=== PATIENT | female | born 1955 | race Caucasian/White ===

== ENCOUNTER 2022-06-22 16:40 | Inpatient (IN) | payer MEDICARE, OTHER, SELFPAY ==
[2022-06-22 17:02] VITALS: BP 159/91; PULSE 100; RESP 16; TEMP 36.2; O2SAT 97; BMI 25.8
--- NOTE | 2022-06-22 17:05 | DI.RAD.S_ITS ---
PROCEDURE: XR HIP W PEL IF DONE LT 2V INDICATIONS: fall, unable to bear weight. left hip pain TECHNIQUE: AP pelvis with lateral view(s) of the left hip(s). COMPARISON: None. FINDINGS: Bones: A mildly displaced subcapital left femoral neck fracture is faintly seen. No additional fractures are detected. There is moderate to severe superior joint space narrowing seen of both hips, with associated remodeling changes with subchondral sclerosis and osteophyte formation. Lower lumbar spine postoperative and degenerative changes are seen. Soft tissues: The visualized bowel gas pattern is normal. No suspicious soft tissue calcifications. IMPRESSION: Apparent mildly displaced left femoral neck fracture at the subcapital level. Please consider a dedicated CT for further evaluation, if it would be helpful for clinical management decision making. Moderate to severe bilateral hip degenerative change can be seen. Lower lumbar spine postoperative and degenerative changes are seen. Dictated by: Kyle Truong M.D. on 06/22/2022 at 16:45 Approved by: Kyle Truong M.D. on 06/22/2022 at 16:46
--- NOTE | 2022-06-22 18:18 | ED_ITS ---
HPI - Fall General Chief Complaint: Fall Stated Complaint: Fell yesterday, Hip pain Time Seen by Provider: 06/22/22 18:15 Source: patient Mode of arrival: Wheelchair History of Present Illness HPI Narrative: 67-year-old female former smoker with history of hypertension and hyperlipidemia presents with family in the chief complaint of a fall yesterday in which she misjudged the depth of a step and fell onto her side resulting in severe hip pain, to the point that she can not ambulate due to this pain. She denies any head neck or back pain. She denies any prodromal symptoms such as dizziness, weakness or lightheadedness. She has had no chest pain, shortness of breath or palpitations. She denies nausea, vomiting or diarrhea. She denies any numbness, tingling or weakness. She is activated as a modified trauma given age greater than 65 and suspected injury Related Data Home Medications Medication Instructions Recorded Confirmed amlodipine 2.5 mg tablet 2.5 mg PO DAILY 06/22/22 06/22/22 aspirin 81 mg chewable tablet 81 mg PO DAILY 06/22/22 06/22/22 atorvastatin 80 mg tablet 80 mg PO BEDTIME 06/22/22 06/22/22 lisinopril 2.5 mg tablet 2.5 mg PO BID 06/22/22 06/22/22 Previous Rx's Medication Instructions Recorded enoxaparin 40 mg/0.4 mL 40 mg (0.4 mL) SUBCUT DAILY 14 06/24/22 subcutaneous syringe (Lovenox) days #4 mL oxycodone 10 mg tablet 10 mg PO Q4H PRN Pain, Moderate 06/24/22 (4-6) #30 tabs Allergies Allergy/AdvReac Type Severity Reaction Status Date / Time No Known Drug Allergies Allergy Verified 06/23/22 17:36 Review of Systems Review of Systems Narrative: GENERAL: Denies chills, fatigue, malaise, fever, sweats. HEENT: Denies sinus pain, ear pain, sore throat, difficulty swallowing, dizziness. RESPIRATORY: Denies dyspnea, cough, wheezing, hemoptysis, sputum. CARDIOVASCULAR: Denies chest pain, palpitations, orthopnea, edema, GASTROINTESTINAL: Denies nausea, vomiting, abdominal pain, diarrhea, constipation, melena. : Denies dysuria, frequency, incontinence, hematuria, urinary retention. MUSCULOSKELETAL: d see HP SKIN: Denies rash, skin lesions, or other NEUROLOGIC: Denies weakness, headache, numbness, change in speech, confusion, seizures, incoordination. PSYCHIATRIC: No concerning psychosocial issues. 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 Well-developed patient, in mild distress. HEAD: Atraumatic. Normocephalic. EYES: Pupils equal round and reactive. Extraocular motions intact. No scleral icterus. No injection or drainage. ENT: Nose without bleeding, purulent drainage. Throat without erythema, tonsillar hypertrophy or exudate. Airway patent. NECK: Trachea midline. Non tender CARDIOVASCULAR: Regular rate and rhythm without murmurs, gallops, or rubs. RESPIRATORY: Clear to auscultation. Breath sounds equal bilaterally. No wheezes, rales, or rhonchi. GASTROINTESTINAL: Abdomen soft, non-tender, nondistended. EXTREMITIES: Left hip tender to palpate, no shortening or rotation, no numbness, tingling or weakness BACK: Nontender without deformity or crepitance. No flank tenderness. NEURO: AOx3. SKIN: No rash or erythema of visible areas Initial Vital Signs Initial Vital Signs: Vital Signs Temperature 97.1 F L 06/22/22 17:02 Pulse Rate 100 H 06/22/22 17:02 Respiratory Rate 16 06/22/22 17:02 Blood Pressure 159/91 H 06/22/22 17:02 Pulse Oximetry 97 06/22/22 17:02 Oxygen Delivery Method 06/22/22 17:02 Course Orders Ordered: Discontinued Medications Acetaminophen (Acetaminophen 325 Mg Tablet) 325 mg PO Q6HR PRN PRN Reason: Fever/Mild Pain (1-3) Last Admin: 06/23/22 19:23 Dose: 325 mg Documented By: CG Acetaminophen (Acetaminophen 325 Mg Tablet) 325 mg PO PACUNOW PRN PRN Reason: Pain, Mild (1-3) Hydrocodone Bitart/Acetaminophen (Hydrocodone/Acet 5/325 Tablet) 1 tab PO Q4HR PRN PRN Reason: Pain, Moderate (4-6) Al Hydrox/Mg Hydrox/Simethicone (Mag Hydrox/Alum/Simeth 30 Ml Udc) 30 ml PO QID PRN PRN Reason: Dyspepsia Last Admin: 06/24/22 10:30 Dose: 30 ml Documented By: Admin: 06/24/22 00:04 Dose: 30 ml Documented By: CN Amlodipine Besylate (Amlodipine 5 Mg Tablet) 2.5 mg PO DAILY [facility] [place] Last Admin: 06/24/22 08:57 Dose: 2.5 mg Documented By: Admin: 06/23/22 10:36 Dose: 2.5 mg Documented By: AM Aspirin (Aspirin 81 Mg Chew Tab) 81 mg PO DAILY [facility] [place] Last Admin: 06/24/22 08:56 Dose: 81 mg Documented By: AM Atorvastatin Calcium (Atorvastatin 20 Mg Tablet) 80 mg PO BEDTIME [facility] [place] Last Admin: 06/23/22 20:22 Dose: 80 mg Documented By: ARCHIE Bupivacaine HCl/Epinephrine Bitart (Bupivacaine 0.5% W/ Epi (Pf) 30 Ml Vial) 30 ml INJ NOW ONE Stop: 06/23/22 18:39 Last Admin: 06/23/22 18:38 Dose: 30 ml Documented By: ANGELO Docusate Sodium (Docusate 100 Mg Capsule) 100 mg PO BID [facility] [place] Last Admin: 06/24/22 08:57 Dose: 100 mg Documented By: Admin: 06/23/22 20:22 Dose: 100 mg Documented By: CN Enoxaparin Sodium (Enoxaparin 40 Mg/0.4 Ml Syringe) 40 mg SUBCUT DAILY [facility] [place] Last Admin: 06/24/22 08:59 Dose: 40 mg Documented By: AM Famotidine (Famotidine 20 Mg Tablet) 20 mg PO BID [facility] [place] Last Admin: 06/23/22 09:11 Dose: 20 mg Documented By: Admin: 06/22/22 21:00 Dose: 20 mg Documented By: MS Fentanyl (Fentanyl 100 Mcg/2 Ml Inj) 0 mcg IV Q5M PRN PRN Reason: Pain, Moderate (4-6) Heparin Sodium (Porcine) (Heparin 5,000 Unit/Ml Vial) 5,000 unit SUBCUT BID FOSTER Stop: 06/23/22 09:01 Last Admin: 06/23/22 09:11 Dose: 5,000 unit Documented By: Admin: 06/22/22 21:00 Dose: 5,000 unit Documented By: Hydromorphone HCl (Hydromorphone 0.5 Mg Inj) 0.5 mg IV NOW ONE Stop: 06/22/22 18:55 Last Admin: 06/22/22 18:57 Dose: 0.5 mg Documented By: TK Hydromorphone HCl (Hydromorphone 2 Mg Inj) 0 mg IV Q5M PRN PRN Reason: Pain, Moderate (4-6) Hydromorphone HCl (Hydromorphone 1 Mg Inj) 0.2 mg IV Q1H PRN PRN Reason: Pain, Mild (1-3) Lactated Ringer's (Lactated Ringers) 1,000 mls @ 42 mls/hr IV CONT FOSTER Last Infusion: 06/23/22 19:18 Dose: 0 mls/hr Documented By: Admin: 06/23/22 18:04 Dose: 42 mls/hr Documented By: VIANEY Cefazolin Sodium/Dextrose (Ancef) 100 mls @ 200 mls/hr IV NOW ONE Stop: 06/23/22 19:06 Last Infusion: 06/23/22 18:25 Dose: 0 mls/hr Documented By: Admin: 06/23/22 18:10 Dose: 200 mls/hr Documented By: AB Lactated Ringer's (Lactated Ringers) 1,000 mls @ 125 mls/hr IV CONT FOSTER Last Admin: 06/23/22 20:22 Dose: 125 mls/hr Documented By: ARCHIE Cefazolin Sodium/Dextrose (Ancef) 100 mls @ 200 mls/hr IV Q8H FOSTER Stop: 06/24/22 10:29 Last Admin: 06/24/22 11:55 Dose: 200 mls/hr Documented By: Infusion: 06/24/22 02:55 Dose: 200 mls/hr Documented By: Admin: 06/24/22 02:25 Dose: 200 mls/hr Documented By: ARCHIE Lisinopril (Lisinopril 5 Mg Tablet) 2.5 mg PO BID [facility] [place] Last Admin: 06/24/22 08:58 Dose: 2.5 mg Documented By: Admin: 06/23/22 20:22 Dose: 2.5 mg Documented By: ARCHIE Magnesium Chloride (Magnesium Chloride 64 Mg Tablet) 128 mg PO NOW ONE Stop: 06/23/22 12:01 Last Admin: 06/23/22 14:20 Dose: 128 mg Documented By: AM Magnesium Hydroxide (Magnesium Hydroxide 30 Ml Udc) 30 ml PO BEDTIME [facility] [place] Last Admin: 06/23/22 20:22 Dose: 30 ml Documented By: ARCHIE Metoclopramide HCl (Metoclopramide 10 Mg/2 Ml Inj) 10 mg IV Q6HR PRN PRN Reason: Nausea And Vomiting Morphine Sulfate (Morphine 2 Mg/Ml Inj) 2 mg IV Q4HR PRN PRN Reason: Pain, Moderate (4-6) Last Admin: 06/23/22 03:24 Dose: 2 mg Documented By: Admin: 06/22/22 22:18 Dose: 2 mg Documented By: Naloxone HCl (Naloxone 0.4 Mg/Ml Vial) 0.2 mg IV Q2MIN PRN PRN Reason: Opiate Reversal Ondansetron HCl (Ondansetron 4 Mg/2 Ml Inj) 4 mg IV NOW PRN PRN Reason: Nausea And Vomiting Last Admin: 06/23/22 19:22 Dose: 4 mg Documented By: VIANEY Ondansetron HCl (Ondansetron 4 Mg Odt) 4 mg PO Q4HR PRN PRN Reason: Nausea And Vomiting Oxycodone HCl (Oxycodone Ir 5 Mg Tablet) 5 mg PO Q4HR PRN PRN Reason: Pain, Moderate (4-6) Last Admin: 06/23/22 04:10 Dose: 5 mg Documented By: Admin: 06/22/22 20:59 Dose: 5 mg Documented By: Oxycodone HCl (Oxycodone Ir 5 Mg Tablet) 10 mg PO Q4HR PRN PRN Reason: Pain, Moderate (4-6) Last Admin: 06/23/22 19:22 Dose: 10 mg Documented By: Admin: 06/23/22 14:20 Dose: 10 mg Documented By: Admin: 06/23/22 10:36 Dose: 10 mg Documented By: AM Oxycodone HCl (Oxycodone Ir 10 Mg Tablet) 10 mg PO Q3HR PRN PRN Reason: Pain, Moderate (4-6) Last Admin: 06/24/22 12:08 Dose: 10 mg Documented By: Admin: 06/24/22 08:56 Dose: 10 mg Documented By: Admin: 06/24/22 02:47 Dose: 10 mg Documented By: Admin: 06/23/22 23:41 Dose: 10 mg Documented By: Admin: 06/23/22 20:21 Dose: 10 mg Documented By: CN Oxycodone/Acetaminophen (Oxycodone/Acetaminophen 5/325 Tablet) 1 tab PO PACUNOW PRN PRN Reason: Mild or Moderate Pain Sodium Chloride (Sodium Chloride 0.9% Flush) 10 ml IV BID FOSTER Last Admin: 06/24/22 11:54 Dose: 10 ml Documented By: Admin: 06/23/22 20:23 Dose: 10 ml Documented By: Admin: 06/23/22 19:13 Dose: Not Given Documented By: Admin: 06/22/22 21:06 Dose: 10 ml Documented By: MS Consultations Consultation #1: On-call orthopedist, Dr. Zavala, contacted and happy to accept patient on his service Vital Signs Vital signs: Vital Signs - 8 hr 06/22/22 17:02 Temperature 97.1 F L Pulse Rate 100 H Respiratory Rate 16 Blood Pressure 159/91 H Pulse Oximetry 97 Oxygen Delivery Method Room Air - Fall Lab Data Result diagrams: 06/24/22 07:00 06/24/22 07:00 Labs: Lab Results 06/22/22 06/22/22 06/22/22 Range/Units 18:40 18:40 18:40 WBC 6.9 (4.5-11.0) X10^3/uL RBC 4.71 (4.0-5.2) X10^6/uL Hgb 14.4 (12.0-16.0) g/dL Hct 41.4 (36-46) % MCV 87.7 (80-100) fL MCH 30.6 (26-34) PG MCHC 34.9 (30-36) % RDW 13.2 (11.6-14.8) % Plt Count 202 (150-400) X10^3/uL Neut % (Auto) 49.1 L (50-75) % Lymph % (Auto) 33.2 (25-40) % [place] % (Auto) 10.1 (3-14) % Eos % (Auto) 6.5 H (2-4) % Baso % (Auto) 1.1 (0-2) % Neut # (Auto) 3400 (5562-2487) /uL Lymph # (Auto) 2300 (6020-0758) /uL [place] # (Auto) 700 (0-900) /uL Eos # (Auto) 400 (0-450) /uL Baso # (Auto) 100 (0-100) /uL Sodium 137 (137-145) mmol/L Potassium 3.7 (3.4-5.1) mmol/L Chloride 105 (98-107) mmol/L Carbon Dioxide 25 (22-32) mmol/L BUN 13 (7-17) mg/dL Creatinine 0.55 (0.52-1.04) mg/dL Estimated GFR > 60 (>60) mL/min BUN/Creatinine Ratio 23.6 H (6-22) Glucose 137 H (80-110) mg/dL Calcium 9.6 (8.4-10.2) mg/dL Magnesium 1.7 (1.6-2.3) mg/dL Total Bilirubin 0.9 (0.2-1.3) mg/dL AST 34 (14-36) IU/L ALT 36 H (<35) IU/L Alkaline Phosphatase 126 (38-126) U/L Total Protein 7.6 (6.3-8.2) g/dL Albumin 4.4 (3.5-5.0) g/dL Globulin 3.2 (1.7-4.1) g/dL Albumin/Globulin Ratio 1.4 (1.0-2.8) SARS-CoV-2 (PCR) (Negative) 06/22/22 Range/Units 18:40 WBC (4.5-11.0) X10^3/uL RBC (4.0-5.2) X10^6/uL Hgb (12.0-16.0) g/dL Hct (36-46) % MCV (80-100) fL MCH (26-34) PG MCHC (30-36) % RDW (11.6-14.8) % Plt Count (150-400) X10^3/uL Neut % (Auto) (50-75) % Lymph % (Auto) (25-40) % [place] % (Auto) (3-14) % Eos % (Auto) (2-4) % Baso % (Auto) (0-2) % Neut # (Auto) (2093-6977) /uL Lymph # (Auto) (1103-4615) /uL [place] # (Auto) (0-900) /uL Eos # (Auto) (0-450) /uL Baso # (Auto) (0-100) /uL Sodium (137-145) mmol/L Potassium (3.4-5.1) mmol/L Chloride (98-107) mmol/L Carbon Dioxide (22-32) mmol/L BUN (7-17) mg/dL Creatinine (0.52-1.04) mg/dL Estimated GFR (>60) mL/min BUN/Creatinine Ratio (6-22) Glucose (80-110) mg/dL Calcium (8.4-10.2) mg/dL Magnesium (1.6-2.3) mg/dL Total Bilirubin (0.2-1.3) mg/dL AST (14-36) IU/L ALT (<35) IU/L Alkaline Phosphatase (38-126) U/L Total Protein (6.3-8.2) g/dL Albumin (3.5-5.0) g/dL Globulin (1.7-4.1) g/dL Albumin/Globulin Ratio (1.0-2.8) SARS-CoV-2 (PCR) Negative (Negative) Imaging Data Extremity x-ray #1: Radiologist's Impression: [address] [place] [id number] XRay Report Signed Patient: Meghan Girard MR#: [id number] : 1955 Acct:[id number] Age/Sex: 67 / F Date of Service: 06/22/22 Loc: ED Accession Number: [id number] ?? Procedure: XR hip w pel if done LT 2V Ordering Provider: Clara Louis D.O. PROCEDURE:? XR HIP W PEL IF DONE LT 2V ? INDICATIONS:? fall, unable to bear weight. left hip pain ? TECHNIQUE:? AP pelvis with lateral view(s) of the left hip(s).? ? COMPARISON:? None. ? FINDINGS:? ? Bones:? A mildly displaced subcapital left femoral neck fracture is faintly seen. ? No additional fractures are detected.? ? There is moderate to severe superior joint space narrowing seen of both hips, with associated remodeling changes with subchondral sclerosis and osteophyte formati on.? ? Lower lumbar spine postoperative and degenerative changes are seen. ? Soft tissues:? The visualized bowel gas pattern is normal.? No suspicious soft tissue calcifications.? ? ? IMPRESSION:? Apparent mildly displaced left femoral neck fracture at the subcapital level. ? Please consider a dedicated CT for further evaluation, if it would be helpful for clinical management decision making. ? Moderate to severe bilateral hip degenerative change can be seen. ? Lower lumbar spine postoperative and degenerative changes are seen. ? ? ? Dictated by: Kyle Truong M.D. on 06/22/2022 at 16:45 ? ? Approved by: Kyle Truong M.D. on 06/22/2022 at 16:46 ? Discharge Plan Departure Patient Disposition: Admitted As Inpatient Clinical Impression: Hip fracture Admit Date/Time: 06/22/22 19:02 Admit Provider: Shay Chamberlain
[2022-06-22] MEDS: HYDROMORPHONE 0.5 MG INJ IV (18:57)
[2022-06-22 19:11] LABS: Add Manual Diff / Slide Review NO; Basophils Absolute Auto 100 /uL (0-100); Basophils Percent Auto 1.1 % (0-2); Eosinophils Absolute Auto 400 /uL (0-450); Eosinophils Percent Auto 6.5 % (2-4); Hematocrit 41.4 % (36-46); Hemoglobin 14.4 g/dL (12.0-16.0); Lymphocytes Absolute Auto 2300 /uL (1100-4500); Lymphocytes Percent Auto 33.2 % (25-40); Mean Corpuscular HGB Conc 34.9 % (30-36); Mean Corpuscular Hemoglobin 30.6 PG (26-34); Mean Corpuscular Volume 87.7 fL (80-100); Monocytes Absolute Auto 700 /uL (0-900); Monocytes Percent Auto 10.1 % (3-14); Neutrophils Absolute Auto 3400 /uL (1500-7000); Neutrophils Percent Auto 49.1 % (50-75); Platelet Count 202 X10^3/uL (150-400); Red Blood Cell Count 4.71 X10^6/uL (4.0-5.2); Red Cell Distribution Width 13.2 % (11.6-14.8); White Blood Cell Count 6.9 X10^3/uL (4.5-11.0)
[2022-06-22 19:13] LABS: Alanine Aminotransferase 36 IU/L (<35); Albumin 4.4 g/dL (3.5-5.0); Albumin Globulin Ratio 1.4 (1.0-2.8); Alkaline Phosphatase 126 U/L (38-126); Aspartate Aminotransferase 34 IU/L (14-36); BUN Creatinine Ratio 23.6 (6-22); Bilirubin Total 0.9 mg/dL (0.2-1.3); Blood Urea Nitrogen 13 mg/dL (7-17); Calcium 9.6 mg/dL (8.4-10.2); Carbon Dioxide 25 mmol/L (22-32); Chloride 105 mmol/L (98-107); Estimated Glomerular Filt Rate > 60 mL/min (>60); Globulin 3.2 g/dL (1.7-4.1); Glucose 137 mg/dL (80-110); HEMOLYSIS 35 (0-50); Magnesium 1.7 mg/dL (1.6-2.3); Potassium 3.7 mmol/L (3.4-5.1); Sodium 137 mmol/L (137-145); Total Protein 7.6 g/dL (6.3-8.2)
[2022-06-22 19:15] LABS: COVID19 -Nasal RAPID Negative (Negative)
[2022-06-22 20:40] VITALS: BP 160/94; PULSE 90; RESP 16; TEMP 36.3; O2SAT 95
[2022-06-22] MEDS: OXYCODONE IR 5 MG TABLET PO (20:59)
[2022-06-22] MEDS: HEPARIN 5,000 UNIT/ML VIAL 5000 UNIT SUBCUT (21:00)
[2022-06-22] MEDS: FAMOTIDINE 20 MG TABLET PO (21:00)
[2022-06-22] MEDS: SODIUM CHLORIDE 0.9% FLUSH 10 ML IV (21:06)
--- NOTE | 2022-06-22 21:53 | P.HP_ITS ---
History of Present Illness History of Present Illness Date Patient Seen: 06/22/22 Time Patient Seen: 20:00 Chief complaint: Fell yesterday, Hip pain Narrative: Ms. Girard is a 67W with PMH CAD s/p DC, HTN, HL who presents to the hospital after a fall. She was vacationing in [place] and was stepping down off a step and fell on her left side. Had immediate hip pain. No head strike or LOC. She spent the [place] in [place] the [place] and came to the hospital. In the ED workup was done, vitals notable for elevated blood pressure and mild tachycardia. Labs notable for WBC 6.9, hgb 14.4, plts 202. Creatinine 0.55. Imaging shows a displaced left femoral neck fracture. She was admitted for further treatment. PMH: CAD s/p DC, HTN, HL SH: social drinker Family hx: Father with DC in his 50s Patient History Family & Social History Tobacco & Substance use: Smoking Status Former smoker alcohol intake frequency holiday/special occasion Substance Use Type does not use Meds Home Medications and Allergies Allergies Allergy/AdvReac Type Severity Reaction Status Date / Time No Known Drug Allergies Allergy Verified 06/22/22 17:32 Review of Systems Review of Systems Narrative: 14 systems reviewed and negative aside from what is noted in HPI Exam Vital Signs (past 8 hours): - 06/22/22 17:02 06/22/22 20:40 Temperature 97.1 F L 97.4 F L Pulse Rate 100 H 90 Respiratory Rate 16 16 Blood Pressure 159/91 H 160/94 H Pulse Oximetry 97 95 Oxygen Delivery Method Room Air Oxygen Flow Rate 0 Oxygen Delivery Method Room Air Oxygen Flow Rate 0 Narrative Exam Narrative: GEN: no acute distress HEENT: moist mucous membranes, PERRL NECK: trachea midline, no JVD PULM: clear bilaterally CV: regular rate and rhythm, no murmurs ABD: soft, nontender, nondistended, no organomegaly EXT: warma and well perfused with no edema, left hip tender to palpation NEURO: awake, alert, oriented, no focal deficits Objective Labs Result Diagrams: 06/22/22 18:40 06/22/22 18:40 Labs: Laboratory Results - last 24 hr 06/22/22 06/22/22 06/22/22 18:40 18:40 18:40 WBC 6.9 RBC 4.71 Hgb 14.4 Hct 41.4 MCV 87.7 MCH 30.6 MCHC 34.9 RDW 13.2 Plt Count 202 Neut % (Auto) 49.1 L Lymph % (Auto) 33.2 [place] % (Auto) 10.1 Eos % (Auto) 6.5 H Baso % (Auto) 1.1 Neut # (Auto) 3400 Lymph # (Auto) 2300 [place] # (Auto) 700 Eos # (Auto) 400 Baso # (Auto) 100 Sodium 137 Potassium 3.7 Chloride 105 Carbon Dioxide 25 BUN 13 Creatinine 0.55 Estimated GFR > 60 BUN/Creatinine Ratio 23.6 H Glucose 137 H Calcium 9.6 Magnesium 1.7 Total Bilirubin 0.9 AST 34 ALT 36 H Alkaline Phosphatase 126 Total Protein 7.6 Albumin 4.4 Globulin 3.2 Albumin/Globulin Ratio 1.4 SARS-CoV-2 (PCR) 06/22/22 18:40 WBC RBC Hgb Hct MCV MCH MCHC RDW Plt Count Neut % (Auto) Lymph % (Auto) [place] % (Auto) Eos % (Auto) Baso % (Auto) Neut # (Auto) Lymph # (Auto) [place] # (Auto) Eos # (Auto) Baso # (Auto) Sodium Potassium Chloride Carbon Dioxide BUN Creatinine Estimated GFR BUN/Creatinine Ratio Glucose Calcium Magnesium Total Bilirubin AST ALT Alkaline Phosphatase Total Protein Albumin Globulin Albumin/Globulin Ratio SARS-CoV-2 (PCR) Negative Assessment & Plan Assessment & Plan narrative: Ms. Girard is a 67W who presents after a fall found to have L hip facture. 1. Acute left hip fracture -NPO after midnight -pain control with IV meds -ortho consult for surgery 2. CAD s/p DC with HTN, HL -hold aspirin -continue statin and BP meds CODE: Full Proxy: Lucas Torresnoelle, spouse I have utilized all available resources to reconcile the patient's home medications Time Spent With Patient Critical Care time: I spent a total of [] minutes of critical care time on this patient's care today; this time is exclusive of procedural time. Quality MIPS - Admit I confirm the patient?s Advance Care Plan is present, Code status is documented, Surrogate decision maker is in patient?s record [If Yes, STOP here]: Yes
[2022-06-22 22:04] VITALS: BMI 25.8
[2022-06-22] MEDS: MORPHINE 2 MG/ML INJ IV (22:18)
[2022-06-23] VITALS (17 sets, daily range): BP systolic 96–160; BP diastolic 61–95; PULSE 15–96; RESP 13–86; TEMP 36.6–37.7; O2SAT 92–100; BMI 25.8
--- NOTE | 2022-06-23 | DI.RAD.S_ITS ---
PROCEDURE: XR HIP W PEL IF DONE LT 2V INDICATIONS: left hip TECHNIQUE: 3 views of the hip were acquired. COMPARISON: [facility], , XR HIP W PEL IF DONE LT 2V, 06/22/2022, 17:11. FINDINGS: 3 intraoperative fluoroscopic views of the left hip demonstrate open reduction internal fixation of the previously described left femoral neck fracture. 3 fixation screws are demonstrated traversing the femoral neck. IMPRESSION: 1. Intraoperative fluoroscopic views demonstrate ORIF of left femoral neck fracture. Dictated by: Valentino Waters M.D. on 06/23/2022 at 21:33 Approved by: Valentino Waters M.D. on 06/23/2022 at 21:34
[2022-06-23] MEDS: MORPHINE 2 MG/ML INJ IV (03:24)
[2022-06-23] MEDS: OXYCODONE IR 5 MG TABLET PO (04:10)
[2022-06-23 07:21] LABS: Add Manual Diff / Slide Review NO; Basophils Absolute Auto 100 /uL (0-100); Basophils Percent Auto 2.1 % (0-2); Eosinophils Absolute Auto 300 /uL (0-450); Eosinophils Percent Auto 6.2 % (2-4); Hematocrit 39.5 % (36-46); Lymphocytes Absolute Auto 1600 /uL (1100-4500); Lymphocytes Percent Auto 32.2 % (25-40); Mean Corpuscular HGB Conc 35.3 % (30-36); Mean Corpuscular Hemoglobin 31.1 PG (26-34); Mean Corpuscular Volume 88.2 fL (80-100); Monocytes Absolute Auto 500 /uL (0-900); Neutrophils Absolute Auto 2600 /uL (1500-7000); Neutrophils Percent Auto 50.5 % (50-75); Platelet Count 173 X10^3/uL (150-400); Red Blood Cell Count 4.48 X10^6/uL (4.0-5.2); Red Cell Distribution Width 13.3 % (11.6-14.8); White Blood Cell Count 5.1 X10^3/uL (4.5-11.0)
[2022-06-23 07:30] LABS: BUN Creatinine Ratio 18.8 (6-22); Blood Urea Nitrogen 12 mg/dL (7-17); Calcium 8.2 mg/dL (8.4-10.2); Carbon Dioxide 29 mmol/L (22-32); Chloride 100 mmol/L (98-107); Estimated Glomerular Filt Rate > 60 mL/min (>60); Glucose 136 mg/dL (80-110); HEMOLYSIS < 15 (0-50); Potassium 3.7 mmol/L (3.4-5.1); Sodium 135 mmol/L (137-145)
--- NOTE | 2022-06-23 07:37 | P.PN_ITS ---
Subjective Subjective Date Patient Seen: 06/23/22 Time Patient Seen: 09:30 Interval history: Patient having pain in her hip but otherwise feels well. Asking for ice chips until her surgery later. Exam Vital Signs (past 8 hours): - 06/23/22 00:29 06/23/22 03:30 Temperature 97.9 F 98.6 F Pulse Rate 87 91 H Respiratory Rate 18 14 Blood Pressure 158/87 H 155/78 H Pulse Oximetry 96 94 Oxygen Flow Rate 0 0 Oxygen Delivery Method Room Air Oxygen Flow Rate 0 Narrative Exam Narrative: GEN: no acute distress HEENT: moist mucous membranes, PERRL NECK: trachea midline, no JVD PULM: clear bilaterally CV: regular rate and rhythm, no murmurs ABD: soft, nontender, nondistended, no organomegaly EXT: warma and well perfused with no edema, left hip tender to palpation NEURO: awake, alert, oriented, no focal deficits Objective Labs Result Diagrams: 06/23/22 06:25 06/23/22 06:25 Labs: Laboratory Results - last 24 hr 06/22/22 06/22/22 06/22/22 18:40 18:40 18:40 WBC 6.9 RBC 4.71 Hgb 14.4 Hct 41.4 MCV 87.7 MCH 30.6 MCHC 34.9 RDW 13.2 Plt Count 202 Neut % (Auto) 49.1 L Lymph % (Auto) 33.2 [place] % (Auto) 10.1 Eos % (Auto) 6.5 H Baso % (Auto) 1.1 Neut # (Auto) 3400 Lymph # (Auto) 2300 [place] # (Auto) 700 Eos # (Auto) 400 Baso # (Auto) 100 Sodium 137 Potassium 3.7 Chloride 105 Carbon Dioxide 25 BUN 13 Creatinine 0.55 Estimated GFR > 60 BUN/Creatinine Ratio 23.6 H Glucose 137 H Calcium 9.6 Magnesium 1.7 Total Bilirubin 0.9 AST 34 ALT 36 H Alkaline Phosphatase 126 Total Protein 7.6 Albumin 4.4 Globulin 3.2 Albumin/Globulin Ratio 1.4 SARS-CoV-2 (PCR) 06/22/22 06/23/22 06/23/22 18:40 06:25 06:25 WBC 5.1 RBC 4.48 Hgb 14.0 Hct 39.5 MCV 88.2 MCH 31.1 MCHC 35.3 RDW 13.3 Plt Count 173 Neut % (Auto) 50.5 Lymph % (Auto) 32.2 [place] % (Auto) 9.0 Eos % (Auto) 6.2 H Baso % (Auto) 2.1 H Neut # (Auto) 2600 Lymph # (Auto) 1600 [place] # (Auto) 500 Eos # (Auto) 300 Baso # (Auto) 100 Sodium 135 L Potassium 3.7 Chloride 100 Carbon Dioxide 29 BUN 12 Creatinine 0.64 Estimated GFR > 60 BUN/Creatinine Ratio 18.8 Glucose 136 H Calcium 8.2 L Magnesium Total Bilirubin AST ALT Alkaline Phosphatase Total Protein Albumin Globulin Albumin/Globulin Ratio SARS-CoV-2 (PCR) Negative PFSH Social History household members: spouse Smoking Status: Former smoker Assessment & Plan Assessment & Plan narrative: Ms. Girard is a 67W who presents after a fall found to have L hip facture. 1. Acute left hip fracture -clears today until surgery -pain control with IV meds -ortho consult for surgery 2. CAD s/p LA with HTN, HL -hold aspirin -continue statin and BP meds CODE: Full Proxy: Lucas Ferrer, spouse I have utilized all available resources to reconcile the patient's home medications Time Spent With Patient Critical Care time: I spent a total of [] minutes of critical care time on this patient's care today; this time is exclusive of procedural time.
[2022-06-23] MEDS: FAMOTIDINE 20 MG TABLET PO (09:11)
[2022-06-23] MEDS: HEPARIN 5,000 UNIT/ML VIAL 5000 UNIT SUBCUT (09:11)
[2022-06-23] MEDS: AMLODIPINE 5 MG TABLET 2.5 MG PO (10:36)
[2022-06-23] MEDS: OXYCODONE IR 5 MG TABLET 10 MG PO ×3 (10:36→19:22)
--- NOTE | 2022-06-23 12:43 | CM.DANOTE ---
Patient is a 67 yo female who was admitted on 06/22/22 for GLF/hip pain. Pt has [facility] and [employer] for insurance and her PCP is not listed. EMR was reviewed. Per MD, pt admitted after an accidental trip and sustained a hip fx and Ortho consulted for plan of surgery. Ortho Consult Pending. SW met bedside with pt and spouse/DPOA Lucas and explained role and they confirm they are living in [place], [place] in a rental ([address] [facility], [facility] [address]) while in the process of buying a house but have a PO box in [place]. Pt is very active and independent at baseline and was on vacation when she missed a step and fell on her hip. Pt and spouse very pleasant and SW explained typical process post surgery with PT eval, CG training and potential for outpt vs HH PT at d/c. Pt confirms she has no hx of HH or SNF but had a prior back surgery and did complete outpt PT before. Spouse states he can assist at d/c and pt very hopeful she will do well post surg with PT to still participate in her two upcoming trips that require flying. Pt has local supportive family and drives and does not use DME at baseline. Plan: SW to follow for likely surgery tonight and then PT eval towards determining likely home with outpt vs HH PT and any further identified needs. RICK Ochoa Discharge Planning/Care Management CM Discharge Assessment Start: 06/23/22 12:41 Freq: Status: Active Protocol: Document 06/23/22 12:41 BF (Rec: 06/23/22 12:42 [id number]) Discharge Planning Assessment Assigned Ruby On Rails Software Developer RICK Valente DPMARI/Assigned Designee Name spouse Lucas Contact Information [phone] Advance Directives? No Advance Directives on File No History Provided By Patient,Significant Other, Medical Record Has Patient been admitted in last 30 No days? Prior Living Arrangements House Household Members spouse Type of transporation used prior to Drives own vehicle admit Independent with ADL's Yes Is patient alert and oriented? Yes Caregiver for Another No Patient/Family Preference Home with Home Health Comment Pending surgery and PT eval Barriers to Discharge No Discharge Plan Home with Home Health Community Services Physical Therapy,Home Health Nurse Transportation Arrangement spouse bedside and plans to provide transport if safe for POV Additional Comment Pending surgery and PT eval Whiteboard Updated in Patient Room with Yes name and ext. # of Ruby On Rails Software Developer Review Status In Process Please Provide Date Initial DC 06/23/22 Assessment Was Performed Next Review Type Continued Stay Review
--- NOTE | 2022-06-23 13:27 | PC.NURSE ---
Addendum entered by Raudel Arroyo R.N. 06/24/22 12:23: Pt still sitting up in chair, eating lunch. RN educated pt to call for help when needing to use bathroom. Addendum entered by Raudel Arroyo R.N. 06/24/22 12:22: Shannon removed per orders. Pt stating 8/10 pain, 10mg oxycodone given around 1200. Addendum entered by Raudel Arroyo R.N. 06/24/22 09:54: Pt complaining of 9/10 pain this AM, and was given 10mg of oxycodone. Pt is moving independently in bed. PT is w/ pt at this time. Original Note: Pt tolerating pain well with 10mg oxycodone. Pt on clear liquids diet now per dr orders. Pt waiting to have consult with Orthopedic dr to organize plan of care. at bedside.
[2022-06-23] MEDS: MAGNESIUM CHLORIDE 64 MG TABLET 128 MG PO (14:20)
--- NOTE | 2022-06-23 17:25 | P.CONS_ITS ---
History of Present Illness Consult details Date Patient Seen: 06/23/22 Time Patient Seen: 17:30 Chief complaint: Fell yesterday, Hip pain Narrative: 67-year-old female admitted last night due to a fall resulting in a proximal femur fracture. Patient had a trip and fall landing on her left hip. Denies any loss of consciousness. Denies any in her head. Denies any syncopal episodes. States that before the fall she was really having any issues with the hips and was able to ambulate without any difficulty. Meds Home Medications and Allergies Home Medications Medication Instructions Recorded Confirmed Type amlodipine 2.5 mg tablet 2.5 mg PO DAILY 06/22/22 06/22/22 History aspirin 81 mg chewable tablet 81 mg PO DAILY 06/22/22 06/22/22 History atorvastatin 80 mg tablet 80 mg PO BEDTIME 06/22/22 06/22/22 History lisinopril 2.5 mg tablet 2.5 mg PO BID 06/22/22 06/22/22 History Allergies Allergy/AdvReac Type Severity Reaction Status Date / Time No Known Drug Allergies Allergy Verified 06/22/22 17:32 Exam Vital Signs (past 8 hours): - 06/23/22 12:00 06/23/22 16:15 Temperature 99.4 F 99.7 F H Pulse Rate 82 94 H Respiratory Rate 18 18 Blood Pressure 126/72 155/95 H Pulse Oximetry 93 99 Oxygen Delivery Method Room Air Oxygen Flow Rate 0 Narrative Exam Narrative: On physical exam, patient is alert and orient x3. No apparent distress. No sign of any injuries involving the bilateral upper extremities. Full range of motion of the shoulder elbow wrist and fingers. No bruising or swelling. Ulnar, median, and radial nerve intact both motor and sensory function. Right lower extremity also free of any injuries. No pain with range of motion of the hip knee or ankle. Compartments soft. Positive dorsiflexion plantar flexion. Left lower extremity no sign of any knee or ankle swelling normal dorsiflexion and plantar flexion. Patient does have pain with range of motion of the left hip joint. Objective Labs Result Diagrams: 06/23/22 06:25 06/23/22 06:25 Labs: Laboratory Results - last 24 hr 06/22/22 06/22/22 06/22/22 18:40 18:40 18:40 WBC 6.9 RBC 4.71 Hgb 14.4 Hct 41.4 MCV 87.7 MCH 30.6 MCHC 34.9 RDW 13.2 Plt Count 202 Neut % (Auto) 49.1 L Lymph % (Auto) 33.2 [place] % (Auto) 10.1 Eos % (Auto) 6.5 H Baso % (Auto) 1.1 Neut # (Auto) 3400 Lymph # (Auto) 2300 [place] # (Auto) 700 Eos # (Auto) 400 Baso # (Auto) 100 Sodium 137 Potassium 3.7 Chloride 105 Carbon Dioxide 25 BUN 13 Creatinine 0.55 Estimated GFR > 60 BUN/Creatinine Ratio 23.6 H Glucose 137 H Calcium 9.6 Magnesium 1.7 Total Bilirubin 0.9 AST 34 ALT 36 H Alkaline Phosphatase 126 Total Protein 7.6 Albumin 4.4 Globulin 3.2 Albumin/Globulin Ratio 1.4 SARS-CoV-2 (PCR) 06/22/22 06/23/22 06/23/22 18:40 06:25 06:25 WBC 5.1 RBC 4.48 Hgb 14.0 Hct 39.5 MCV 88.2 MCH 31.1 MCHC 35.3 RDW 13.3 Plt Count 173 Neut % (Auto) 50.5 Lymph % (Auto) 32.2 [place] % (Auto) 9.0 Eos % (Auto) 6.2 H Baso % (Auto) 2.1 H Neut # (Auto) 2600 Lymph # (Auto) 1600 [place] # (Auto) 500 Eos # (Auto) 300 Baso # (Auto) 100 Sodium 135 L Potassium 3.7 Chloride 100 Carbon Dioxide 29 BUN 12 Creatinine 0.64 Estimated GFR > 60 BUN/Creatinine Ratio 18.8 Glucose 136 H Calcium 8.2 L Magnesium Total Bilirubin AST ALT Alkaline Phosphatase Total Protein Albumin Globulin Albumin/Globulin Ratio SARS-CoV-2 (PCR) Negative PFSH Social History household members: spouse Tobacco & Substance Use Smoking Status: Former smoker Assessment & Plan Assessment & Plan narrative: Patient with a minimally displaced femoral neck fracture. Based on this I would recommend a closed reduction and internal fixation of the femoral neck fracture. Went over patient's injury as well as treatment options both operative versus non operative. Went over the particular risk and limitations as well as the rehabilitation and afterwards. All the patient's questions and concerns were answered to her full satisfaction and consent form was freely obtained. The risk, benefits, alternatives, possible complications, operative course, and postop outcomes were discussed. Complications including but not limiting to bleeding, infection, fracture, nerve injury, continued pain postoperatively or instability postoperatively were discussed in detail. Medical complications including but not limited to deep venous thrombosis event, anesthesia complications with excessive bleeding, vascular events or cardiac events and other possible complications were discussed in detail. Need for postoperative rehabilitation and anticipated hospital stay and clinical course were discussed in detail. Patient acknowledges understanding and elects to proceed with surgery. Time Spent With Patient Critical Care time: I spent a total of [] minutes of critical care time on this patient's care today; this time is exclusive of procedural time.
[2022-06-23] MEDS: LACTATED RINGERS 1,000 ML 42 ML IV (18:04)
[2022-06-23] MEDS: CEFAZOLIN 2 GM/100 ML PREMIX 100 ML IV (18:10)
--- NOTE | 2022-06-23 18:31 | SUR.OPER ---
Head on pillow. Supine on fracture table with operative leg secured in traction. Other leg secured in padded stirrup. Arms across chest, secured with sheet.
[2022-06-23] MEDS: BUPIVACAINE 0.5% W/ EPI (PF) 30 ML VIAL INJ (18:38)
--- NOTE | 2022-06-23 19:09 | P.OP_ITS ---
Operative Date/Time/Diagnoses Date of procedure: 06/23/22 Time of procedure: 16:15 Pre-op diagnosis: Left proximal femoral neck fracture Post-op diagnosis: same Procedure & Clinicians Procedure: Close reduction internal fixation left femoral neck fracture Same procedure as scheduled: Yes Indications: Minimally displaced femoral neck fracture Surgeon: Miguel Zavala Click Yes if Unassisted: Yes Anesthesia Type: General Operative Notes Findings: Minimally displaced femoral neck fracture Closure Type: primary Applied: implant(s) (3 partially-threaded 7.3 mm cannulated screws.) Estimated Blood Loss (mL): 10 Procedure in detail: On date of service, patient was met in the holding area where his operative site was signed and witnessed by the OR staff. Surgeries once again discussed with the patient and any remaining questions or concerns he had were answered fully. Patient received 2 g of Ancef preoperatively. Patient was taken back to the operating theater where general anesthesia was admitted. Patient was then transferred to the fracture table. Both feet were well padded and placed into fracture boot. A well-padded perineal post was placed. The left leg was slightly elevated and internally rotated was some distraction. The right leg was placed in scissor position on a lowered position. X-ray was brought in and AP and lateral views were obtained showing maintenance of a nondisplaced femoral neck fracture. Time-out had previously been formed verifying patient's name, procedure, and operative site. The leg was then prepped and draped in the normal sterile fashion. Ten blade was used to make a small incision on the lateral aspect of thigh. Wills elevator was then used to elevate off a small area of the muscular tissue so we could get to the shaft of the femur. Guidewire was placed up into the femoral head in a center center position. This was verified on x-ray. Once we were satisfied with the position of the guidewire 2 additional guidewires were placed using the targeting guide. These were also verified with AP and lateral views with the C- arm. Once we were satisfied with the positioning and of the 3 guidewires they were measured and the appropriate screws were placed. Final x-rays were obtained verifying screw positioning and maintenance of reduction of the femoral neck fracture. The wound was then copiously irrigated and then closed in a layered fashion. The wound was cleaned, dried, and dressed. Patient was taken to the PACU in stable condition.
[2022-06-23] MEDS: ONDANSETRON 4 MG/2 ML INJ IV (19:22)
[2022-06-23] MEDS: ACETAMINOPHEN 325 MG TABLET PO (19:23)
[2022-06-23] MEDS: OXYCODONE IR 10 MG TABLET PO ×2 (20:21→23:41)
[2022-06-23] MEDS: LACTATED RINGERS 1,000 ML 125 ML IV (20:22)
[2022-06-23] MEDS: ATORVASTATIN 20 MG TABLET 80 MG PO (20:22)
[2022-06-23] MEDS: lisinopriL 5 MG TABLET 2.5 MG PO (20:22)
[2022-06-23] MEDS: DOCUSATE 100 MG CAPSULE PO (20:22)
[2022-06-23] MEDS: MAGNESIUM HYDROXIDE 30 ML UDC PO (20:22)
[2022-06-23] MEDS: SODIUM CHLORIDE 0.9% FLUSH 10 ML IV (20:23)
[2022-06-24] MEDS: MAG HYDROX/ALUM/SIMETH 30 ML UDC PO ×2 (00:04→10:30)
[2022-06-24] MEDS: CEFAZOLIN 2 GM/100 ML PREMIX 100 ML IV ×2 (02:25→11:55)
[2022-06-24] MEDS: OXYCODONE IR 10 MG TABLET PO ×3 (02:47→12:08)
[2022-06-24 05:25] VITALS: BP 116/69; PULSE 88; RESP 18; TEMP 36.6; O2SAT 98
--- NOTE | 2022-06-24 07:41 | PM.PNPO.1 ---
Subjective Subjective Date Patient Seen: 06/24/22 Time Patient Seen: 07:41 Interval history: Patient's pain is moderate. Denies fever or chills. No nausea/ vomiting. Patient has assistance at home. Exam Vital Signs (past 8 hours): - 06/24/22 05:25 Temperature 97.9 F Pulse Rate 88 Respiratory Rate 18 Blood Pressure 116/69 Pulse Oximetry 98 Oxygen Flow Rate 2 Fraction of Inspired Oxygen 28 SaO2/FiO2 Ratio 339 Oxygen Delivery Method Nasal Cannula Oxygen Flow Rate 2 Narrative Exam Narrative: 67-year-old female resting comfortably in bed in no apparent distress. Dressing is Clean, dry, intact.. Motor functions intact bilateral lower extremities. Sensation grossly intact to light touch bilateral lower extremities. 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 HTN (hypertension) Hyperlipemia Myocardial infarction Surgical History History of lumbar surgery History of shoulder surgery Hx of heart artery stent Social History household members: spouse Smoking Status: Former smoker Assessment & Plan Post-op Postoperative Procedures: Procedures Operation Date: 06/23/22 16:00 Actual Procedure Side Surgeon p Closed reduction, percutaneous pinning left femoral neck fracture Left Miguel Zavala MD Postoperative day: 1 Postoperative status: doing well Postoperative plan: routine post-op care Postoperative plan narrative: Work with physical therapy Multimodal pain management Disposition home in the next 1-2 days
[2022-06-24 07:55] LABS: Hemoglobin 13.6 g/dL (12.0-16.0); Mean Corpuscular HGB Conc 34.1 % (30-36); Mean Corpuscular Hemoglobin 30.3 PG (26-34); Platelet Count 201 X10^3/uL (150-400); Red Blood Cell Count 4.49 X10^6/uL (4.0-5.2); Red Cell Distribution Width 13.3 % (11.6-14.8); White Blood Cell Count 7.6 X10^3/uL (4.5-11.0)
[2022-06-24 08:15] VITALS: BP 118/64; PULSE 81; RESP 16; TEMP 36; O2SAT 97
[2022-06-24 08:18] LABS: BUN Creatinine Ratio 20.3 (6-22); Blood Urea Nitrogen 12 mg/dL (7-17); Calcium 8.4 mg/dL (8.4-10.2); Carbon Dioxide 30 mmol/L (22-32); Chloride 99 mmol/L (98-107); Estimated Glomerular Filt Rate > 60 mL/min (>60); Glucose 198 mg/dL (80-110); HEMOLYSIS < 15 (0-50); Potassium 4.2 mmol/L (3.4-5.1); Sodium 135 mmol/L (137-145)
[2022-06-24] MEDS: ASPIRIN 81 MG CHEW TAB PO (08:56)
[2022-06-24] MEDS: AMLODIPINE 5 MG TABLET 2.5 MG PO (08:57)
[2022-06-24] MEDS: DOCUSATE 100 MG CAPSULE PO (08:57)
[2022-06-24 08:58] VITALS: BP 118/64; PULSE 81
[2022-06-24] MEDS: lisinopriL 5 MG TABLET 2.5 MG PO (08:58)
[2022-06-24] MEDS: ENOXAPARIN 40 MG/0.4 ML SYRINGE SUBCUT (08:59)
--- NOTE | 2022-06-24 10:13 | PM.DS.1 ---
History of Present Illness History of Present Illness Date Patient Seen: 06/24/22 Time Patient Seen: 10:00 Chief complaint: Fell yesterday, Hip pain Narrative: Ms. Girard is a 67W with PMH CAD s/p [place], HTN, HL who presents to the hospital after a fall. She was vacationing in [place] and was stepping down off a step and fell on her left side. Had immediate hip pain. No head strike or LOC. She spent the [place] in return [place] the [place] and came to the hospital. In the ED workup was done, vitals notable for elevated blood pressure and mild tachycardia. Labs notable for WBC 6.9, hgb 14.4, plts 202. Creatinine 0.55. Imaging shows a displaced left femoral neck fracture. She was admitted for further treatment. Discharge Providers Provider Date of admission: 06/22/22 19:02 Discharge Date: 06/24/22 Consults: 06/23/22 19:04 Consult to Discharge Planning Routine Comment: Consult to Physical Therapy Evaluate & Treat Comment: Physician Instructions: Evaluate and Treat Consult to Respiratory Therapy Evaluate & Treat Comment: Physician Instructions: Evaluate and treat 06/24/22 07:25 Consult to Orthopedic Surgery Routine Comment: Consulting Provider: Miguel Zavala Reason for consultation: hip fracture Has provider been notified: Yes Discharge provider: Shay Chamberlain DO Summary Hospital Course Discharge Diagnosis: 1. Acute left hip fracture 2. CAD s/p [place] with HTN, HL Hospital Course: Admitted for GLF after slipping at the pool and landing on left hip causing hip fracture. Underwent surgical repair with Dr. Zavala and was cleared by PT for home the next day. Discharged on 2 weeks of lovenox for DVT prevention. Time Spent with Patient Time spent: Greater than 30 minutes Exam Vital Signs (past 8 hours): Fraction of Inspired Oxygen 28 SaO2/FiO2 Ratio 339 Oxygen Delivery Method Nasal Cannula Oxygen Flow Rate 0 Narrative Exam Narrative: GEN: no acute distress HEENT: moist mucous membranes, PERRL NECK: trachea midline, no JVD PULM: clear bilaterally CV: regular rate and rhythm, no murmurs ABD: soft, nontender, nondistended, no organomegaly EXT: warma and well perfused with no edema, left hip tender to palpation with surgical dressing in place NEURO: awake, alert, oriented, no focal deficits Objective Labs Result Diagrams: 06/24/22 07:00 06/24/22 07:00 [facility] Medical History 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 You now have a shiny new hip. PT cleared you for home. You will need to complete 2 weeks of lovenox shots to prevent a clot developing in the leg. I've also sent some pain meds in case you need them. If the 10mg is too strong you can cut it in half. Please take a laxative like miralax which you can buy at the grocery store while on the oxycodone to prevent constipation. Discharge orders & Medications Prescriptions: New enoxaparin [Lovenox] 40 mg/0.4 mL Syringe 40 mg SUBCUT DAILY 14 Days Qty: 4 0RF oxycodone 10 mg Tablet 10 mg PO Q4H PRN (Reason: Pain, Moderate (4-6)) Qty: 30 0RF Continued amlodipine 2.5 mg Tablet 2.5 mg PO DAILY lisinopril 2.5 mg Tablet 2.5 mg PO BID aspirin 81 mg Tablet,Chewable 81 mg PO DAILY atorvastatin 80 mg Tablet 80 mg PO BEDTIME Follow up/Referrals: Miguel Zavala MD [Physician] - Visit Report/Discharge Packet Instructions: How to Prevent Falls, DI for Open Reduction Internal Fixation Surgery, DI for Prescription Opioid Use, Enoxaparin Injection
--- NOTE | 2022-06-24 11:00 | PT.IIE ---
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 HTN (hypertension) Hyperlipemia Myocardial infarction Physical Therapy Inpatient Evaluation/Re-Eval M1 PT/OT-IP Prior Functional Status Start: 06/24/22 12:16 Freq: NEEDED Status: Active Protocol: Document 06/24/22 11:00 DLM (Rec: 06/24/22 12:34 DLM [id number]) Medical Review Prior Functional Status Medical History Reviewed Yes Diet/Fluid Consistency Regular Communication WFL Mobility and Gait Independent without device, active, boating Activities of Daily Living and IADL's Independent Social History Household Members spouse Living Arrangements Apartment/Condo Number of Floors (Floors) One Floor Number of Stairs To Enter/Railing? none Home Environment Standard Height Toilet,Walk in Shower Additional Social History Comment looking for house but temporarily living in a first floor apt M2 PT-IP Current Condition Start: 06/24/22 12:16 Freq: NEEDED Status: Active Protocol: Document 06/24/22 11:00 DLM (Rec: 06/24/22 12:34 DL [id number]) Physical Therapy Current Condition Current Condition Evaluation Date 06/24/22 Treatment Diagnosis left hip fx, ORIF, impaired mobility/gait Onset Date 06/22/22 M3 PT-IP Subjective Start: 06/24/22 12:16 Freq: NEEDED Status: Active Protocol: Document 06/24/22 11:00 DLM (Rec: 06/24/22 12:34 DLM [id number]) Subjective Physical Therapy Visit Type Type Initial Evaluation Visit Start Time 10:15 Visit Stop Time 11:00 Total Visit Minutes 45 Number of DRUG DISCOVERY INFORMATICS SPECIALIST Visits 0 Physical Therapy Visit Comments Patient Comments Her pain is better than before surgery Patient Goals Discharge home M4 PT-IP Mobility and Gait Start: 06/24/22 12:16 Freq: NEEDED Status: Active Protocol: Document 06/24/22 11:00 DLM (Rec: 06/24/22 12:34 [facility] [id number]) PT-Bed Mobility Assessment Supine to Sit Supine to Sit Standby Assistance Scooting Scooting to Edge of Bed Independent PT-Transfer Assessment Sit to and From Stand Sit to and from Stand Standby Assistance,Contact Guard Assistance,Use of Upper Extremities Equipment Transfer Assistive Device Gait Belt,Front Wheeled Walker Transfers Transfer Destination Chair Transfer Technique Stand Step Pivot Transfer Ability Level of Assist Standby Assistance,Contact Guard Assistance,Use of Upper Extremities Comments Mobility Comments up to recliner this visit Gait Assessment Gait Gait Assistance Required: Standby Assistance,Contact Guard Assist Distance (Feet) 25 Able to Maintain Weight Bearing Status Yes During Gait Assistive Devices Assistive Device Gait Belt,Front Wheeled Walker Gait Deviations General Gait Pattern Antalgic Factors Limiting Gait Function Factors Limiting Gait Function Decreased Activity Tolerance, Decreased Strength,Limited Range of Motion,Pain,Poor Balance Comments Gait Comments She demonstrates good ability to use her UE's to manage her partial weight bearing status. Stair Climbing Assessment Comments Stair Climbing Comments she has no steps at home PT-Balance Assessment Sitting Balance and Reactions Static Sitting Balance Ability Normal Dynamic Sitting Balance Ability Normal Standing Balance and Reactions Static Standing Balance Ability Good Dynamic Standing Balance Ability Good Device Used FWW M5 PT-IP Objective Assessments Start: 06/24/22 12:16 Freq: NEEDED Status: Active Protocol: Document 06/24/22 11:00 DL (Rec: 06/24/22 12:34 [facility] [id number]) Orientation Orientation/Cognition Level of Alertness Alert Orientation Name,Age,Birthday,Month,Date, Year,Day of Week,Place, Situation Language Function Ability No Deficits Noted Safety Awareness Understands Safety Issues Memory Description No Deficits Noted Gross Range of Motion Upper Extremity ROM Assessment Within Functional Limits Lower Extremity ROM Assessment Left Impaired Impairments pain with left hip movements Strength Upper Extremity Strength Assessment Within Functional Limits Lower Extremity Strength Assessment Left Impaired Hip flexion 3-/5 Knee 4-/5 Ankle DF 4+/5 Coordination Assessment Gross Coordination Gross Coordination WNL Sensation Assessment Sensation Gross Sensation WNL Muscle Tone Muscle Tone WNL Yes M6 PT-IP Treatment Start: 06/24/22 12:16 Freq: NEEDED Status: Active Protocol: Document 06/24/22 11:00 DLM (Rec: 06/24/22 12:34 DLM [id number]) Physical Therapy Treatment Exercises Exercises Ankle Pumps Education Education Provided Weight Bearing Status,Safety Other Treatments Other Treatment Performed Her Spouse is present this visit. Answered his questions and discussed home equipment needs. Recommend FWW and 3 in one for home use. Ice applied to incisional area after activity which pt reports is helpful. 4/10 left hip area pain reported this visit. M7 PT-IP Assessment and Plan Start: 06/24/22 12:16 Freq: NEEDED Status: Active Protocol: Document 06/24/22 11:00 DLM (Rec: 06/24/22 12:34 DLM [id number]) PT Summary Assessment and Plan Potential Rehabilitation Potential Good Status of Condition at Evaluation Evolving Summary Impairments Pain,ROM,Strength,Balance,Bed Mobility,Transfers,Gait, Activity Tolerance Assessment Summary Meghan is alert and resting in bed. She still has hall catheter in place. She reports her pain has improved since having surgery. She was able to ambulate in her room with FWW using PWB on left LE. She was left up in the recliner this visit. Her Spouse is planning to get her equipment before discharge home. He is available to help her at discharge. Will plan to do afternoon therapy session and if she can progress her gait anticipate she will be able to discharge home today. Goals Bed Mobility Goal Independent Transfer Goal Independent,Front Wheeled Walker Gait Goal Independent,Front Wheel Walker Gait Distance 60 feet Days to Meet Goals 2 Frequency of Treatment Frequency Of Treatment Twice a Day Treatment Plan Physical Therapy Treatment Plan Bed Mobility Training,Transfer Training,Gait Training, Therapeutic Exercise,Balance Retraining,Discharge Planning, Hot or Cold Pack,Neuromuscular Re-ed Weight Bearing Status Weight Bearing Status Partial Weight Bearing Allowed Weight Bearing Amount (enter % left LE or #) (%) Recommendations To Nursing Amount of Assist Needed 1 Person Assist Discharge Recommendations PT Discharge Recommendations Home with Assistance Transportation Needs at Discharge Private Vehicle
[2022-06-24 11:27] VITALS: BP 125/92; PULSE 90; RESP 18; TEMP 36.4; O2SAT 95
[2022-06-24] MEDS: SODIUM CHLORIDE 0.9% FLUSH 10 ML IV (11:54)
--- NOTE | 2022-06-24 13:21 | PT.IPTN ---
Current Diagnoses Unspecified intracapsular fracture of left femur, initial encounter for closed fracture (06/22/22) Surgery Performed Operation Date: 06/23/22 16:00 Actual Procedures p Closed reduction, percutaneous pinning left femoral neck fracture(Left) - Miguel Zavala MD Physical Therapy Treatment Note M2 PT-IP Current Condition Start: 06/24/22 12:16 Freq: NEEDED Status: Discharge Protocol: Document 06/24/22 11:00 DLM (Rec: 06/24/22 12:34 DLM [id number]) Physical Therapy Current Condition Current Condition Evaluation Date 06/24/22 Treatment Diagnosis left hip fx, ORIF, impaired mobility/gait Onset Date 06/22/22 M3 PT-IP Subjective Start: 06/24/22 12:16 Freq: NEEDED Status: Discharge Protocol: Document 06/24/22 12:57 KS (Rec: 06/24/22 15:10 KS [id number]) Subjective Physical Therapy Visit Type Type Treatment Note Visit Start Time 12:57 Visit Stop Time 13:21 Total Visit Minutes 24 Notes present 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 Physical Therapy Visit Comments Patient Comments Pt willing to participate Patient Goals Discharge home M4 PT-IP Mobility and Gait Start: 06/24/22 12:16 Freq: NEEDED Status: Discharge Protocol: Document 06/24/22 12:57 KS (Rec: 06/24/22 15:10 KS [id number]) PT-Bed Mobility Assessment Supine to Sit Supine to Sit Standby Assistance Scooting Scooting to Edge of Bed Independent PT-Transfer Assessment Sit to and From Stand Sit to and from Stand Standby Assistance,Contact Guard Assistance,Use of Upper Extremities Equipment Transfer Assistive Device Gait Belt,Front Wheeled Walker Transfers Transfer Destination Chair Transfer Technique pt ambulated w/ FWW Transfer Ability Level of Assist Standby Assistance,Contact Guard Assistance,Use of Upper Extremities Comments Mobility Comments Pt in chair upon arrival and willing to ambulate further. Demonstrated gait belt application to pts . Pt sit<>stand and ambulated to bathroom w/ FWW SBA. She then ambulated additional 50 ft in room and performed platform step backwards x2 w/ CGA by her and cues for sequencing. She was able to maintain PWB throughout. She then returned to chair, reveiwed ankle pumps, quad sets, and glute sets and discussed at home safety. Gait Assessment Gait Gait Assistance Required: Standby Assistance,Contact Guard Assist Distance (Feet) 50 Able to Maintain Weight Bearing Status Yes During Gait Assistive Devices Assistive Device Gait Belt,Front Wheeled Walker Gait Deviations General Gait Pattern Antalgic Factors Limiting Gait Function Factors Limiting Gait Function Decreased Activity Tolerance, Decreased Strength,Limited Range of Motion,Pain,Poor Balance Comments Gait Comments She demonstrates good ability to use her UE's to manage her partial weight bearing status. Stair Climbing Assessment Evaluation Level of Assist On Stairs Contact Guard Assistance,1 Person Assistance Devices Stair Climbing Assistive Devices Front Wheel Walker Technique/Endurance Stair Climbing Direction Ascend and Descend Stair Climbing Technique Step to Step Number of Steps Climbed 1 Stair Climbing Set # Repetitions (reps) 2 Comments Stair Climbing Comments Pt ascended/descended platform step backwards w/ FWW CGA by w/ cues for sequencing while maintaining PWB status. PT-Balance Assessment Sitting Balance and Reactions Static Sitting Balance Ability Normal Dynamic Sitting Balance Ability Normal Standing Balance and Reactions Static Standing Balance Ability Good Dynamic Standing Balance Ability Good Device Used FWW M5 PT-IP Objective Assessments Start: 06/24/22 12:16 Freq: NEEDED Status: Discharge Protocol: Document 06/24/22 11:00 DLM (Rec: 06/24/22 12:34 DLM [id number]) Orientation Orientation/Cognition Level of Alertness Alert Orientation Name,Age,Birthday,Month,Date, Year,Day of Week,Place, Situation Language Function Ability No Deficits Noted Safety Awareness Understands Safety Issues Memory Description No Deficits Noted Gross Range of Motion Upper Extremity ROM Assessment Within Functional Limits Lower Extremity ROM Assessment Left Impaired Impairments pain with left hip movements Strength Upper Extremity Strength Assessment Within Functional Limits Lower Extremity Strength Assessment Left Impaired Hip flexion 3-/5 Knee 4-/5 Ankle DF 4+/5 Coordination Assessment Gross Coordination Gross Coordination WNL Sensation Assessment Sensation Gross Sensation WNL Muscle Tone Muscle Tone WNL Yes M6 PT-IP Treatment Start: 06/24/22 12:16 Freq: NEEDED Status: Discharge Protocol: Document 06/24/22 12:57 KS (Rec: 06/24/22 15:10 KS [id number]) Physical Therapy Treatment Exercises Exercises Ankle Pumps,Gluteal Sets,Quad Sets Education Education Provided Weight Bearing Status,Safety M7 PT-IP Assessment and Plan Start: 06/24/22 12:16 Freq: NEEDED Status: Discharge Protocol: Document 06/24/22 12:57 KS (Rec: 06/24/22 15:10 KS [id number]) PT Summary Assessment and Plan Potential Rehabilitation Potential Good Summary Impairments Pain,ROM,Strength,Balance,Bed Mobility,Transfers,Gait, Activity Tolerance Progress Towards Goals Progressing Toward Goals Assessment Summary Pt able to increase ambulation distance and complete platform step w/ FWW while maintaining PWB status. Her spouse was able to assist as needed and she has acquired FWW for home use. She will benefit from OPPT when approproate to improve strength and stability. Goals Bed Mobility Goal Independent Transfer Goal Independent,Front Wheeled Walker Gait Goal Independent,Front Wheel Walker Gait Distance 60 feet Days to Meet Goals 2 Frequency of Treatment Frequency Of Treatment Twice a Day Treatment Plan Physical Therapy Treatment Plan Bed Mobility Training,Transfer Training,Gait Training, Therapeutic Exercise,Balance Retraining,Discharge Planning, Hot or Cold Pack,Neuromuscular Re-ed Weight Bearing Status Weight Bearing Status Partial Weight Bearing Allowed Weight Bearing Amount (enter % left LE or #) (%) Recommendations To Nursing Amount of Assist Needed 1 Person Assist Discharge Recommendations PT Discharge Recommendations Home with Assistance Transportation Needs at Discharge Private Vehicle
== END 2022-06-24 14:15 | disposition home or self-care (01) | DRG 482 ==
LOC: ED 19:00 → AC 19:02
PROVIDERS: Orthopaedic Surgery; Admitting Provider Student in an Organized Health Care Education/Training Program; Emergency Provider Emergency Medicine; Referring Provider Emergency Medicine; Visit Provider Student in an Organized Health Care Education/Training Program
PROC: 0QS704Z Reposition Left Upper Femur with Internal Fixation Device, Open Approach (ICD-10-PCS; principal; 2022-06-23 16:00)
DX: S72.012A Unspecified intracapsular fracture of left femur, initial encounter for closed fracture (principal); Z20.822 Contact with and (suspected) exposure to COVID-19; I25.10 Atherosclerotic heart disease of native coronary artery without angina pectoris; I10 Essential (primary) hypertension; E78.5 Hyperlipidemia, unspecified; W10.9XXA Fall (on) (from) unspecified stairs and steps, initial encounter; Z87.891 Personal history of nicotine dependence
CPT/HCPCS: 36415; 73502; 76000; 80048; 80053; 83735; 85025; 85027; 87635; 94760; 96374; 97116; 97162; 97530; 99284; C9803; A9270; J0690; J1170; J1644; J1650; J2250; J2270; J2405; J2704; J3010